=== PATIENT | female | born 1960 | race African-American/Black ===

== ENCOUNTER 2018-12-10 17:03 | Emergency (ER) | payer OTHER ==
[2018-12-10 17:29] VITALS: BP 125/84; PULSE 75; TEMP 98.4; BMI 27.1
--- NOTE | 2018-12-10 17:33 | PDOC ---
Rapid Medical Evaluation Time Seen by Provider: 12/10/18 17:25 Medical Evaluation: Allergies Allergy/AdvReac Type Severity Reaction Status Date / Time Sulfa (Sulfonamide AdvReac Verified 12/10/18 17:25 Antibiotics) 12/10/18 17:26 Pt presents to the ER for evaluation of an abscess to the top of her foot. The patient states that she was [place] two days ago and diagnosed with cellulitis to the leg and sent home on Keflex. She reports the pain and swelling in the leg have improved but she now notes a bubble to the top of the foot. Exam: 1cm abscess to the top of the R foot. Redness to the medial leg (pt states it is improving) Orders: Nothing Pt to proceed to the ER for further evaluation Discharge Disposition - Diagnosis Foot infection - Referrals - Patient Instructions - Post Discharge Activity
--- NOTE | 2018-12-10 17:43 | PDOC ---
History of Present Illness - General Chief Complaint: Wound Stated Complaint: BLISTER Time Seen by Provider: 12/10/18 17:25 - History of Present Illness Initial Comments: 12/10/18 17:43 CHIEF COMPLAINT: cellulitis HISTORY OF PRESENT ILLNESS: 57 yo F with hx of recurrent cellulitis requiring IV antibiotics presents to fast track with new vesicles/blisters to R foot. Patient states she was seen at [facility] two days ago and started on oral Keflex for cellulitis. She states that the redness and swelling of her right leg and foot has decreased but last night she developed new blisters so she came in. She denies any fever, chills, nausea, vomiting diarrhea. No recent travel or sick contacts. PAST MEDICAL HISTORY: Denies past medical history FAMILY HISTORY: Denies SOCIAL HISTORY: Denies tobacco, alcohol, illicit drug use. SURGICAL HISTORY: Denies ALLERGIES: sulfa REVIEW OF SYSTEMS General/Constitutional: Denies fever or chills. Denies weakness. HEENT: Denies change in vision. Denies ear pain or discharge. Denies sore throat. Cardiovascular: Denies chest pain or shortness of breath. Respiratory: Denies cough, wheezing, or hemoptysis. Gastrointestinal: Denies nausea, vomiting, diarrhea or constipation. Denies rectal bleeding. Genitourinary: Denies dysuria, frequency, or change in urination. Musculoskeletal: Denies joint or muscle swelling or pain. Denies neck or back pain. Skin: "They gave me medicine for cellulitis and now I have these new blisters on my foot since this morning." Neurologic: Denies headache, vertigo, loss of consciousness, or loss of sensation. PHYSICAL EXAM General Appearance: Well-appearing, appropriately dressed. No apparent distress , no intoxication. HEENT: EOMI, PERRLA, normal ENT inspection, normal voice, TMs normal, pharynx normal. No conjunctival pallor. No photophobia, scleral icterus. Neck: Supple. Trachea midline. No tenderness, rigidity, carotid bruit, stridor , lymphadenopathy, or thyromegaly. Respiratory/Chest: Lungs CTAB. No shortness of breath, chest tenderness, respiratory distress, accessory muscle use. No crackles, rales, rhonchi, stridor , wheezing, dullness Cardiovascular: RRR. S1, S2. No JVD, murmur, bradycardia, tachycardia. Vascular Pulses: Dorsalis-Pedis (R): 2+, Dorsalis-Pedis (L): 2+ Gastrointestinal/Abdominal: Normal bowel sounds. Abdomen soft, non-distended. No tenderness or rebound tenderness. No organomegaly, pulsatile mass, guarding , hernia, hepatomegaly, splenomegaly. Lymphatic: No adenopathy, tenderness. Musculoskeletal/Extremities: Normal inspection. FROM of all extremities, normal capillary refill. Pelvis Stable. No CVA tenderness. No tenderness to extremities, pedal edema, swelling, erythema or deformity. Integumentary: Erythema to R lower extremity extending from medial foot up to knee. Tenderness, erythema, and edema to dorsal aspect of R foot with blister and multiple vesicles to base of R 4th toe. Neurologic: tech writer II-XII intact. Fully oriented, alert. Appropriate mood/affect. Motor strength 5/5. No appreciable EOM palsy, facial droop or sensory deficit. Past History - Past Medical History Allergies/Adverse Reactions: Allergies Allergy/AdvReac Type Severity Reaction Status Date / Time Sulfa (Sulfonamide AdvReac Verified 12/10/18 17:25 Antibiotics) Home Medications: Ambulatory Orders Famotidine [Pepcid -] 20 mg PO DAILY #7 tablet 04/12/14 predniSONE [Deltasone -] 40 mg PO BID #6 tablet 04/12/14 Valacyclovir HCl [Valtrex] 1,000 mg PO TID #30 tablet 12/10/18 - Suicide/Smoking/Psychosocial Hx Smoking History: Current every day smoker Have you smoked in the past 12 months: Yes Number of Cigarettes Smoked Daily: 20 Information on smoking cessation initiated: Yes 'Breaking Loose' booklet given: 11/20/13 Hx Alcohol Use: No Drug/Substance Use Hx: No Substance Use Type: Alcohol Hx Substance Use Treatment: No *Physical Exam - Vital Signs Last Vital Signs Temp Pulse Resp BP Pulse Ox 98.4 F 75 18 125/84 100 12/10/18 17:25 12/10/18 17:25 12/10/18 17:25 12/10/18 17:25 12/10/18 17:25 Medical Decision Making - Medical Decision Making 12/10/18 18:04 57 yo F with hx of recurrent cellulitis requiring IV antibiotics presents to fast track with new vesicles/blisters to R foot. Patient reports that the pain, swelling and redness has decreased since she started the Keflex. 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 Advised patient to take medication as prescribed. Advised patient of signs and symptoms for return to ED. Patient verbalized understanding and agrees to plan. *DC/Admit/Observation/Transfer Diagnosis at time of Disposition: Foot infection Cellulitis Qualifiers: Site of cellulitis: extremity Site of cellulitis of extremity: lower extremity Laterality: right Qualified Code(s): L03.115 - Cellulitis of right lower limb - Discharge Dispostion Disposition: HOME Condition at time of disposition: Stable Decision to Admit order: No - Prescriptions Prescriptions: Valacyclovir HCl [Valtrex] 1,000 mg PO TID #30 tablet - Referrals Referrals: Audrey Crooks MD [Primary Care Provider] - - Patient Instructions Printed Discharge Instructions: DI for Cellulitis -- Adult Additional Instructions: Please take medications as prescribed. Continue taking the Keflex that was prescribed by [facility]. As discussed, please monitor the area of redness on your leg and return to the ER if symptoms worsen or do not improve within 2 days. If you develop fever, chills, nausea, vomiting, diarrhea, or any new or worsening symptoms, please return to the ER. - Post Discharge Activity
[2018-12-10] MEDS ORDERED: valACYclovir HCL 1000 MG TABLET PO ONE (18:17)
== END 2018-12-10 18:50 | disposition home or self-care (01) ==
LOC: JERFT 17:03
DX: L03.115 Cellulitis of right lower limb (principal); L08.9 Local infection of the skin and subcutaneous tissue, unspecified; S90.821A Blister (nonthermal), right foot, initial encounter; F17.210 Nicotine dependence, cigarettes, uncomplicated; X58.XXXA Exposure to other specified factors, initial encounter; Y93.89 Activity, other specified; Y92.89 Other specified places as the place of occurrence of the external cause
CPT/HCPCS: 99281-25